=== PATIENT | female | born 1990 | race Caucasian/White ===

== ENCOUNTER → 2016-10-11 | Outpatient (REF) | payer OTHER, MEDICAID ==
[~2016-10-11] MED LIST: ACET50TA PO; CLAR1TAB2 PO; COLA100C5 PO; IBUP-1114 PO; LORT5TAB PO; PRENTAB9 PO
== END ==
LOC: M LAB REF 13:14
PROVIDERS: ATTEND Obstetrics & Gynecology
DX: Z34.03 Encounter for supervision of normal first pregnancy, third trimester (principal)

== ENCOUNTER → 2016-11-08 | Outpatient (REF) | payer OTHER, MEDICAID ==
[~2016-11-08] MED LIST changes: +HYDR-3363 PO
== END ==
LOC: M LAB REF 16:48
PROVIDERS: ATTEND Advanced Practice Midwife
DX: Z34.03 Encounter for supervision of normal first pregnancy, third trimester (principal); Z3A.35 35 weeks gestation of pregnancy

== ENCOUNTER 2016-11-10 21:23 | Outpatient (CLI) | payer OTHER, MEDICAID ==
[~2016-11-10] VITALS: Ht 162.6 cm; Wt 76.0 kg
== END 2016-11-10 22:35 | disposition home or self-care (01) ==
LOC: M LDO 21:23
PROVIDERS: ATTEND Specialist
DX: O47.03 False labor before 37 completed weeks of gestation, third trimester (principal); Z3A.36 36 weeks gestation of pregnancy

== ENCOUNTER → 2016-11-10 | Outpatient (CLI) | payer OTHER, MEDICAID ==
[2016-11-10 08:55] LABS: MEAN CORPUSCULAR HEMOGLOBIN 31.3 pg (27.0-33.0); MEAN CORPUSCULAR HGB CONC 34.2 g/dl (32.0-36.5); MEAN CORPUSCULAR VOLUME 91.5 fl (80.0-96.0); RED CELL DISTRIBUTION WIDTH 13.9 % (11.5-14.5); WHITE BLOOD COUNT 10.1 K/mm3 (4.0-10.0)
[2016-11-10 09:42] LABS: ALT/SGPT 24 U/L (12-78); AST/SGOT 13 U/L (15-37); BILIRUBIN,TOTAL 0.3 MG/DL (0.2-1.0); CREATININE FOR GFR 0.48 MG/DL (0.55-1.02); GLOMERULAR FILTRATION RATE > 60.0 (>60); URIC ACID 3.5 MG/DL (2.6-6.0)
== END ==
LOC: M LAB 08:25
PROVIDERS: ATTEND Advanced Practice Midwife
DX: R03.0 Elevated blood-pressure reading, without diagnosis of hypertension (principal)

== ENCOUNTER 2016-12-12 05:36 | Inpatient (IN) | payer OTHER, MEDICAID ==
[~2016-12-12] VITALS: Ht 162.6 cm; Wt 82.0 kg
[2016-12-12] VITALS (43 sets, daily range): BP systolic 86–143; BP diastolic 45–77
[2016-12-12 06:08] LABS: MEAN CORPUSCULAR HEMOGLOBIN 29.6 pg (27.0-33.0); MEAN CORPUSCULAR HGB CONC 33.2 g/dl (32.0-36.5); RED CELL DISTRIBUTION WIDTH 13.9 % (11.5-14.5)
[2016-12-12] MEDS ORDERED: ACET50TA PO (06:10)
[2016-12-12] MEDS ORDERED: CLAR1TAB2 PO (06:10)
[2016-12-12] MEDS ORDERED: miSOPROStol 50 MCG 1/2 TAB (S0191) PO ONE (08:15)
--- NOTE | 2016-12-12 08:36 | HPEPDOC ---
Obstetrical History & Physical General Date of Admission Dec 12, 2016 at 05:36 Primary Care Physician: Ramsey Scanlon DO History of Present Illness Patient is a 26 year-old female who is a at 40.3 weeks gestation with an JAY of 12/09/16 based off of her LMP and consistent with her 1st trimester ultrasound. She is a transfer of care at 29 weeks from [place]. Her has been complicated by alcohol, crack and methamphetamine use during . She is currently residing at [facility] inpatient for alcohol and drug abuse. She presents to L&D for an induction of labor for post dates. She reports active movement, occasional contractions, and scant bloody show. Denies leaking of fluid. Chief Complaint: Induction of labor Information Provided By: Patient Age: 26 : 1 Term: 0 Pre-term: 0 Abortions: 0 Livin Care Care: Good Care Dating Final EDC: Dec 09, 2016 Final EDC by: LMP EGA at Admission: 40.3 Antepartum Course Height (inches): 64 Pre- weight (lbs.): 105 Admission Weight (lbs.): 180 Change in Weight (lbs.): 75 Past Medical History Past Obstetrical History : Past Obstetrical History: Primgravida Past Medical History Medical History Alcoholism and drug abuse history Surgical History: Denies/None Family History Significant Family History: Asthma, Other (mother and father with alcohol abuse and drug abuse) Social History Marital Status: Single Psychosocial History: Bipolar, Depression * Smoker: former Smoker Alcohol: sober (last used at the begining of her ) Abuse Violence Screening Have you been hit/kicked/slapp: No Have you been sexually assault: No Imunizations Tdap status: current Allergies Coded Allergies: No Known Allergies (Unverified , 12/12/16) Medications Scheduled PRN Loratadine (Claritin) 10 Mg Tab, 10 MG PO DAILY PRN for ALLERGY SYMPTOMS Miscellaneous Medications Acetaminophen (Mapap) 500 Mg Tab, 1,000 MG PO Physical Examination Physical Examination GENERAL: Alert and oriented times three. BREAST: . ABDOMEN: Gravid and non-tender to touch. FETUS: Is vertex (VTX) by sterile vaginal examination (SVE), fetus is vertex ( VTX) by Huy. HEART RATE: Regular rate and rhythm. LUNGS: Clear to auscultation (CTA). EXTREMITIES: Generalized edema. No clonus. Vital Signs/I&O Vital Signs Date Time Temp Pulse Resp B/P (MAP) Pulse Ox O2 Delivery O2 Flow Rate FiO2 12/12/16 05:56 97.9 91 18 125/77 (93) Laboratory Data 24H LABS Laboratory Tests 2 12/12/16 06:00: 12/12/16 06:12: Urine Amphetamines Screen NEGATIVE, Urine Benzodiazepines Screen NEGATIVE, Urine Opiates Screen NEGATIVE, Urine Methadone Screen NEGATIVE, Urine Barbiturates Screen NEGATIVE, Urine Phencyclidine Screen NEGATIVE, Urine Cocaine Metabolite Screen NEGATIVE, Urine Cannabinoids Screen NEGATIVE CBC/BMP Laboratory Tests 12/12/16 06:00 Red Blood Count 3.99 L, Mean Corpuscular Volume 89.0, Mean Corpuscular Hemoglobin 29.6, Mean Corpuscular Hemoglobin Concent 33.2, Red Cell Distribution Width 13.9 Urine Culture: No Growth Pertinent Laboratoy Data Blood Type: B- RBC Antibody Screen: Negative HIV: Negative Hepatitis B: Negative Hepatitis C: Negative Rapid Plasma Reagin: Nonreactive Rubella: Immune Varicella: Positive Chlamydia/Gonorrhea: Negative Group B Streptococcus: Negative Quad Screen Test: Negative Cystic Fibrosis: Negative Glucose Tolerance Test: 121 Vaginal Examination Dilation: 4 cm Effacement: 80+% Station: -2 Cervical Consistency: Soft Cervical Position: Middle Presentation: Cephalic presentation Position: Vertex (occiput) Assessment Heart Rate (FHR): 135 Variability: Moderate Accelerations: Positive Decelerations: None Tocometer Contractions: Yes Frequency: irregular Multi-drug resistant Organism: No history of MDRO Assessment/Plan Assessment IUP at 40.3 weeks gestation Category I FHR tracing induction of labor GBS negative Plan Admit to L&D Saline lock and labs per order OOB ad shamika regular diet Cytotec ordered for induction. Induction process reviewed with patient including risks, benefits, and alternatives. Patient desires to start induction. Anticipate cervical ripening. DAVID GUTHRIE CNM Dec 12, 2016 08:36 Ramsey Scanlon DO Dec 12, 2016 09:23
[2016-12-12] MEDS ORDERED: OXYTOCIN DRIP 30 UNITS in APPROPRIATE DILUENT 1 EA IV SCH (09:30)
[2016-12-12] MEDS ORDERED: LACTATED RINGER'S 1000 ML IV STA (10:20)
[2016-12-12] MEDS ORDERED: LR 1,000 ML IV SCH (10:20)
[2016-12-12 11:09] LABS: HBSAG L&D NEGATIVE (NEGATIVE)
[2016-12-12] MEDS ORDERED: FENTANYL 2MCG/ML ROPIVACAINE 0.2% IN 0.9% NACL 200ML IVBAG As Ordered ONE (11:32)
[2016-12-12] MEDS ORDERED: REFRIGERATOR IV KEYS XX PRN (13:00)
[2016-12-12] MEDS ORDERED: NALOXONE INJ 0.4 MG/1 ML VIAL (J2310) IV PRN (13:00)
[2016-12-12] MEDS ORDERED: ONDANSETRON 4MG/2ML VIAL (J2405) IV PRN ×2 (13:00→23:30)
[2016-12-12] MEDS ORDERED: diphenhydrAMINE INJ 50MG/ML VIAL (J1200) IV PRN (13:00)
[2016-12-12] MEDS ORDERED: EPIDURAL COMMENT XX SCH (13:00)
[2016-12-12] MEDS ORDERED: EPIDURAL/PCA KEYS XX PRN (13:00)
[2016-12-12] MEDS ORDERED: FENTANYL/ROPIVACAINE/NACL BAG 200 ML EPIDURAL SCH (13:00)
[2016-12-12] MEDS: ePHEDrine SULFATE 25 MG/5 ML(5MG/ML) SYRINGE IV PRN ×3 (17:45→17:53)
[2016-12-12] MEDS ORDERED: LACTATED RINGER'S 1000 ML IV ONE (18:00)
[2016-12-12] MEDS ORDERED: BICITRA 30ML SOLN UDC PO ONE (22:15)
[2016-12-12] MEDS ORDERED: KETAMINE HCL 200 MG/20 ML VIAL As Ordered ONE (22:54)
[2016-12-12] MEDS ORDERED: MIDAZOLAM INJ 2 MG/2 ML VIAL (J2250) As Ordered ONE (23:01)
[2016-12-12] MEDS ORDERED: CHLOROPROCAINE PRES. FREE 3% INJ 20 ML VIAL (J2400) As Ordered ONE (23:01)
[2016-12-12] MEDS ORDERED: OXYTOCIN INJ 10 UNITS/ML VIAL (J2590) As Ordered ONE (23:16)
[2016-12-12] MEDS ORDERED: KETOROLAC 60 MG/2 ML VIAL (J1885) As Ordered ONE (23:17)
[2016-12-12] MEDS ORDERED: ONDANSETRON 4MG/2ML VIAL (J2405) As Ordered ONE (23:17)
[2016-12-12 23:20] LABS: CORD GAS ABE V -1.9; CORD GAS HCO3 V 22.2 MEQ/L; CORD GAS O2 SAT V 71.6 %; CORD GAS PCO2 V 36.7 mmHg; CORD GAS PH V 7.4 UNITS; CORD GAS PO2 V 29.7 mmHg; CORD GAS SBC V 22.1 MEQ/L; CORD GAS TCO2 V 23.3 MEQ/L
[2016-12-12 23:24] LABS: CORD GAS ABE A -1.8; CORD GAS HCO3 A 24.6 MEQ/L; CORD GAS O2 SAT A 25.8 %; CORD GAS PCO2 A 47.6 mmHg; CORD GAS PH A 7.331 UNITS; CORD GAS PO2 A 14.2 mmHg; CORD GAS SBC A 21.1 MEQ/L; CORD GAS TCO2 A 26.1 MEQ/L
[2016-12-12] MEDS ORDERED: MOM 30ML SUSPENSION UDC PO PRN (23:30)
[2016-12-12] MEDS ORDERED: NORCO, ANEXSIA 5/325MG TABLET (HYDROcodone/ACETAMINOPHEN) PO PRN (23:30)
[2016-12-13] VITALS (10 sets, daily range): BP systolic 112–128; BP diastolic 54–61
[2016-12-13] MEDS ORDERED: METOCLOPRAMIDE INJ 10MG/2ML VIAL (J2765) IV PRN (00:15)
[2016-12-13] MEDS ORDERED: PERCOCET 5MG/325MG TAB PO PRN (00:15)
[2016-12-13] MEDS ORDERED: EPIDURAL COMMENT XX SCH (00:15)
[2016-12-13] MEDS ORDERED: NALOXONE INJ 0.4 MG/1 ML VIAL (J2310) IV PRN (00:15)
[2016-12-13] MEDS ORDERED: REFRIGERATOR IV KEYS XX PRN (00:15)
[2016-12-13] MEDS ORDERED: FENTANYL/ROPIVACAINE/NACL BAG 200 ML EPIDURAL SCH (00:15)
[2016-12-13] MEDS ORDERED: HYDROmorphone HCL 1 MG/ML SYRINGE (J1170) IV PRN (00:15)
[2016-12-13] MEDS ORDERED: EPIDURAL/PCA KEYS XX PRN (00:15)
[2016-12-13] MEDS ORDERED: ONDANSETRON 4MG/2ML VIAL (J2405) IV PRN ×2 (00:15)
[2016-12-13] MEDS ORDERED: MEPERIDINE INJ 25 MG/ML VIAL (J2175) IV PRN (00:15)
[2016-12-13] MEDS ORDERED: fentaNYL 100 MCG/2 ML INJECTION (J3010) IV PRN (00:15)
[2016-12-13] MEDS ORDERED: diphenhydrAMINE INJ 50MG/ML VIAL (J1200) IV PRN ×2 (00:15)
[2016-12-13] MEDS ORDERED: LR 1,000 ML IV SCH (00:15)
[2016-12-13 07:14] LABS: MEAN CORPUSCULAR HEMOGLOBIN 30.3 pg (27.0-33.0); MEAN CORPUSCULAR HGB CONC 33.5 g/dl (32.0-36.5); MEAN CORPUSCULAR VOLUME 90.5 fl (80.0-96.0); RED CELL DISTRIBUTION WIDTH 14.2 % (11.5-14.5); WHITE BLOOD COUNT 16.9 10^3/uL (4.0-10.0)
[2016-12-13] MEDS: LR 1,000 ML IV SCH ×2 (08:00)
[2016-12-13] MEDS: PRENATAL VITAMINS CHEWABLE TABLET PO SCH (08:25)
[2016-12-13] MEDS: IBUPROFEN 800 MG TAB PO SCH ×2 (08:25→15:48)
[2016-12-13] MEDS: DOCUSATE SODIUM 100 MG CAP PO SCH ×2 (08:25→21:05)
[2016-12-13] MEDS ORDERED: RHOGAM 300 MCG (1500 IU) INJ (J2790) IM SCH (09:00)
[2016-12-13] MEDS ORDERED: MEASLES,MUMPS,RUBELLA VACCINE INJ (MMR-II) (90707) SC SCH (09:00)
--- NOTE | 2016-12-13 11:13 | RO ---
DATE OF PROCEDURE: 12/12/2016 Leslie is a 26-year-old female, 1, para 0, who was admitted at 40-4/7 weeks' gestation for induction. She underwent misoprostol followed by Pitocin and artificial rupture of membranes. She then progressed to approximately 8 cm and had an arrest of dilatation for over 4 hours. At this point, a decision was made to proceed with primary low transverse section, as the patient refused to continue laboring. PREOPERATIVE DIAGNOSES: 1. Intrauterine at 40-4/7 weeks' gestation. 2. Arrest of dilatation. POSTOPERATIVE DIAGNOSES: 1. Intrauterine at 40-4/7 weeks' gestation. 2. Arrest of dilatation. 3. Nuchal cord times one. 4. Meconium-stained fluid. PROCEDURE: Primary low transverse section via Pfannenstiel incision. ANESTHESIA: Epidural. SURGEON: Ramsey Scanlon DO BUILDINGS [employer] GR[employer]DS SUPERVISOR: COMPLICATIONS: None. ESTIMATED BLOOD LOSS: 600 mL. FINDINGS: Live female infant in occipitotransverse position. scores 8 and 9. weight 7 pounds 9 ounces. Normal-appearing tubes and ovaries. DESCRIPTION OF PROCEDURE: After obtaining informed consent, the patient was taken to the operating room, where epidural anesthetic was found to be adequate. She was then draped and prepped in the usual sterile fashion in the supine position. At this point, a Pfannenstiel incision was made. This was carried down to the fascia. The fascia was incised in midline fashion and carried through laterally. Superior aspect of the fascia was grasped with the Bao clamps, tented off, and dissected off the rectus muscles sharply. The inferior aspect was dissected off in a similar fashion. Rectus muscles in midline fashion. Perineum identified. Peritoneal cavity entered bluntly. Superior and inferior dissection of the peritoneum was then done with good visualization of the bladder. At this point, a Mobius skin retractor was placed. A low-transverse uterine incision was made. was delivered in atraumatic fashion. Nose and mouth bulb suctioned. Cord doubly clamped and cut, and infant was handed over to the awaiting warmer. Cord blood and cord gas were sent. Placenta removed manually. Uterus cleared of all clot and debris, and uterine incision was then repaired in two separate layers of 0 Vicryl sutures. All superficial bleeders coagulated. The skin was reapproximated in a subcuticular fashion using 3-0 Vicryl on a Dannie. Steri-Strips placed. The patient tolerated the procedure well. She was then transferred to recovery room in stable condition.
[2016-12-13] MEDS ORDERED: INFLUENZA QUADRIVALENT PF VACCINE 0.5ML SYRINGE (90686) IM ONE (12:00)
[2016-12-14] MEDS: IBUPROFEN 800 MG TAB PO SCH ×3 (00:13→16:22)
[2016-12-14 06:00] VITALS: BP 126/59
[2016-12-14] MEDS: PRENATAL VITAMINS CHEWABLE TABLET PO SCH (08:07)
[2016-12-14] MEDS: DOCUSATE SODIUM 100 MG CAP PO SCH ×2 (08:08→21:07)
[2016-12-14] MEDS: NORCO, ANEXSIA 5/325MG TABLET (HYDROcodone/ACETAMINOPHEN) PO PRN ×2 (11:28→17:41)
[2016-12-14 18:09] VITALS: BP 121/58
[2016-12-14 21:00] VITALS: BP 115/57
[2016-12-15] MEDS: IBUPROFEN 800 MG TAB PO SCH ×2 (00:15→08:13)
[2016-12-15 06:04] VITALS: BP 104/60
[2016-12-15] MEDS: DOCUSATE SODIUM 100 MG CAP PO SCH (08:13)
[2016-12-15] MEDS: PRENATAL VITAMINS CHEWABLE TABLET PO SCH (08:13)
[2016-12-15] MEDS ORDERED: COLA100C5 PO (10:49)
[2016-12-15] MEDS ORDERED: PRENTAB9 PO (10:50)
[2016-12-15] MEDS ORDERED: IBUP-1114 PO (10:50)
[2016-12-15] MEDS ORDERED: LORT5TAB PO ×2 (10:51→10:52)
--- NOTE | 2017-01-03 09:49 | DSES ---
DATE OF ADMISSION: 12/12/2016 DATE OF DISCHARGE: 12/15/2016 FINAL DIAGNOSES: 1. Term , arrest dilatation. 2. Primary low transverse section. CONDITION UPON DISCHARGE: Stable. Discharge instruction given, to call if there is any severe bleeding, pain or temperature greater than 101. Discharge hemoglobin and hematocrit is 8.9 over 26.6. BRIEF HISTORY: Leslie is a 26-year-old female who was admitted for an induction. She had an arrest of dilatation, was then proceeded to primary low transverse section. She was then transferred to maternity for postoperative care. Postoperatively, e remained afebrile all throughout her hospital stay. On postoperative day #1, her hemoglobin and hematocrit was 8.9/26.6. She remained afebrile and on postoperative day #3 after being examined and seemed to be in stable condition, she was then discharged to followup in the office in approximately 2 weeks. This discharge was done by Dr. Carney.
== END 2016-12-15 11:40 | disposition home or self-care (01) | DRG 540 ==
LOC: M LDI 05:36 → M OBS 12-13 01:07
PROVIDERS: ADMIT Obstetrics & Gynecology; ATTEND Obstetrics & Gynecology
PROC: 3E033VJ Introduction of Other Hormone into Peripheral Vein, Percutaneous Approach (ICD-10-PCS; 2016-12-12)
PROC: 3E0DXGC Introduction of Other Therapeutic Substance into Mouth and Pharynx, External Approach (ICD-10-PCS; 2016-12-12)
PROC: 10907ZC Drainage of Amniotic Fluid, Therapeutic from Products of Conception, Via Natural or Artificial Opening (ICD-10-PCS; 2016-12-12)
PROC: 10D00Z1 Extraction of Products of Conception, Low, Open Approach (ICD-10-PCS; principal; 2016-12-12 08:57)
DX: O48.0 Post-term pregnancy (principal); O77.0 Labor and delivery complicated by meconium in amniotic fluid; Z37.0 Single live birth; Z87.891 Personal history of nicotine dependence; Z3A.40 40 weeks gestation of pregnancy; O62.0 Primary inadequate contractions; O69.82X0 Labor and delivery complicated by other cord entanglement, without compression, not applicable or unspecified; Z81.3 Family history of other psychoactive substance abuse and dependence

== ENCOUNTER 2017-01-11 16:30 | Emergency (ER) | payer OTHER, MEDICAID ==
[~2017-01-11] VITALS: Ht 162.6 cm; Wt 72.7 kg
[~2017-01-11 16:30] MED LIST changes: -HYDR-3363 PO
[2017-01-11] MEDS ORDERED: hydrOXYzine 25 MG TAB PO ONE (19:15)
[2017-01-11] MEDS ORDERED: HYDR-3363 PO (19:15)
[2017-01-11 19:24] VITALS: BP 135/79
== END 2017-01-11 19:25 | disposition home or self-care (01) ==
LOC: M ED 16:30
DX: F33.9 Major depressive disorder, recurrent, unspecified (principal); F41.9 Anxiety disorder, unspecified; J45.909 Unspecified asthma, uncomplicated; Z87.891 Personal history of nicotine dependence

== ENCOUNTER 2017-01-30 11:24 | Emergency (ER) | payer OTHER, MEDICAID ==
[~2017-01-30] VITALS: Ht 162.6 cm; Wt 70.5 kg
[~2017-01-30 11:24] MED LIST changes: +HYDR-3363 PO
[2017-01-30] MEDS ORDERED: HYDR50TA70 PO (11:37)
[2017-01-30] MEDS ORDERED: LORA10TA2 (11:37)
[2017-01-30] MEDS ORDERED: EFFE150C PO (11:37)
[2017-01-30 13:50] VITALS: BP 130/60
== END 2017-01-30 13:53 | disposition home or self-care (01) ==
LOC: M ED 11:24
DX: O99.345 Other mental disorders complicating the puerperium (principal); F33.9 Major depressive disorder, recurrent, unspecified; F19.21 Other psychoactive substance dependence, in remission

== ENCOUNTER → 2017-02-28 | Outpatient (CLI) | payer OTHER, MEDICAID | LOC: M RAD 09:09 | DX: M54.14 Radiculopathy, thoracic region (principal) ==

== ENCOUNTER → 2017-03-05 | Outpatient (REF) | payer OTHER, MEDICAID | LOC: M LAB REF 17:04 | DX: J02.9 Acute pharyngitis, unspecified (principal) ==

== ENCOUNTER → 2017-05-24 | Outpatient (CLI) | payer OTHER, MEDICAID ==
[2017-05-24 10:43] LABS: ALBUMIN 3.9 GM/DL (3.2-5.2); ALBUMIN/GLOBULIN RATIO 1.08 (1.00-1.93); ALKALINE PHOSPHATASE 136 U/L (45-117); ALT/SGPT 32 U/L (12-78); ANION GAP 7 MEQ/L (8-16); AST/SGOT 17 U/L (7-37); BILIRUBIN,TOTAL 0.3 MG/DL (0.2-1.0); BLOOD UREA NITROGEN 13 MG/DL (7-18); CALCIUM LEVEL 8.9 MG/DL (8.5-10.1); CARBON DIOXIDE LEVEL 28 MEQ/L (21-32); CHLORIDE LEVEL 109 MEQ/L (98-107); GLOMERULAR FILTRATION RATE > 60.0 (>60); GLUCOSE, FASTING 100 MG/DL (70-100); POTASSIUM SERUM 3.9 MEQ/L (3.5-5.1); SODIUM LEVEL 144 MEQ/L (136-145); TOTAL PROTEIN 7.5 GM/DL (6.4-8.2)
== END ==
LOC: M LAB 09:36
DX: F10.20 Alcohol dependence, uncomplicated (principal)

== ENCOUNTER → 2017-05-29 | Outpatient (CLI) | payer OTHER, MEDICAID ==
[2017-05-29 09:33] LABS: HEMATOCRIT 39.1 % (36.0-47.0); HEMOGLOBIN 12.7 g/dl (12.0-16.0); MEAN CORPUSCULAR HEMOGLOBIN 27.3 pg (27.0-33.0); MEAN CORPUSCULAR HGB CONC 32.5 g/dl (32.0-36.5); MEAN CORPUSCULAR VOLUME 84.1 fl (80.0-96.0); PLATELET COUNT, AUTOMATED 332 10^3/uL (150-450); RED BLOOD COUNT 4.65 10^6/uL (4.00-5.40); RED CELL DISTRIBUTION WIDTH 13.6 % (11.5-14.5); WHITE BLOOD COUNT 7.5 10^3/uL (4.0-10.0)
== END ==
LOC: M LAB 09:10
DX: F10.20 Alcohol dependence, uncomplicated (principal)

== ENCOUNTER → 2017-06-21 | Outpatient (REF) ==
[2017-06-22 08:06] LABS: HERPES ZOSTER, VARICELLA IgG 224 index (Immune >165)
== END ==
LOC: M LAB 09:00
DX: Z02.1 Encounter for pre-employment examination (principal)

== ENCOUNTER → 2021-12-28 | Outpatient (CLI) | payer OTHER ==
[~2021-12-28] MED LIST changes: -ACET50TA PO; +EFFE150C2 PO; +HYDR50TA70 PO; +LORA-243; +MAPA500T2 PO
== END ==
LOC: M WHC 11:56
PROVIDERS: ATTEND Physician Assistant
DX: N88.8 Other specified noninflammatory disorders of cervix uteri (principal); Z97.5 Presence of (intrauterine) contraceptive device

== ENCOUNTER → 2022-04-04 | Outpatient (REF) | payer OTHER | LOC: M SFHCWAGY 17:42 | PROVIDERS: ATTEND Nurse Practitioner Family | DX: Z12.4 Encounter for screening for malignant neoplasm of cervix (principal) ==

== ENCOUNTER → 2024-02-20 | Outpatient (CLI) | payer OTHER ==
[~2024-02-20] MED LIST changes: -EFFE150C2 PO; +EFFE150C3 PO
== END ==
LOC: M PLAIMG 12:31
PROVIDERS: ATTEND Physical Medicine & Rehabilitation
DX: M50.322 Other cervical disc degeneration at C5-C6 level (principal); M50.122 Cervical disc disorder at C5-C6 level with radiculopathy

== ENCOUNTER → 2024-12-23 | Outpatient (CLI) | payer BC | LOC: M EKG 14:58 | PROVIDERS: ATTEND Student in an Organized Health Care Education/Training Program | DX: I49.8 Other specified cardiac arrhythmias (principal) ==